=== PATIENT | male | born 1990 | race Caucasian/White ===

== ENCOUNTER 2017-10-24 10:44 | Emergency (ER) | payer OTHER ==
[~2017-10-24] VITALS: Ht 180.3 cm; Wt 80.7 kg
[2017-10-24 11:57] VITALS: BP 132/91
== END 2017-10-24 11:45 | disposition home or self-care (01) ==
LOC: ER 10:44
DX: R55 Syncope and collapse (principal); R51 Headache; L53.9 Erythematous condition, unspecified